=== PATIENT | female | born 1975 | race Caucasian/White ===

== ENCOUNTER 2016-12-08 10:27 | Day surgery (SDC) | payer MEDICAID, OTHER ==
[2016-12-08] VITALS (12 sets, daily range): BP systolic 139–175; BP diastolic 69–85; PULSE 66–81; RESP 16–18; Ht 167.6 cm; Wt 133.5 kg
[~2016-12-08] VITALS: Ht 167.6 cm; Wt 133.5 kg
[~2016-12-08 10:27] MED LIST: FENTAnyl 50 MCG/ML VIAL ONE; MIDAZOLAM 1 MG/ML 2 ML INJ ONE; SUGAMMADEX SODIUM 200 MG/2 ML VIAL IV ONE
[2016-12-08] MEDS ORDERED: AMLO5TAB4 PO (11:04)
[2016-12-08] MEDS ORDERED: LOSA100T7 PO (11:04)
[2016-12-08 12:27] LABS: BASOPHILS % 0.4 % (0.0-2.0); EOSINOPHILS # 0.1 10^3/ul (0.0-0.5); EOSINOPHILS % 1.1 % (0.0-7.0); HEMATOCRIT 34.2 % (37.0-47.0); HEMOGLOBIN 11.4 g/dl (12.0-16.0); LYMPHOCYTES # 3.1 10^3/ul (0.8-2.9); LYMPHOCYTES % 42.9 % (15.0-51.0); MEAN CORPUSCULAR HEMOGLOBIN 24.5 pg (29.0-33.0); MEAN CORPUSCULAR HGB CONC 33.3 g/dl (32.0-37.0); MEAN CORPUSCULAR VOLUME 73.4 fl (82.0-101.0); MEAN PLATELET VOLUME 10.3 fl (7.4-10.4); MONOCYTE # 0.4 10^3/ul (0.3-0.9); MONOCYTES % 5.3 % (0.0-11.0); NEUTROPHIL # 3.6 10^3/ul (1.6-7.5); PLATELET COUNT 387 10^3/UL (140-415); RED BLOOD COUNT 4.66 10^6/ul (4.20-5.40); RED CELL DISTRIBUTION WIDTH 16.4 % (11.5-14.5); WHITE BLOOD COUNT 7.2 10^3/ul (4.8-10.8)
[2016-12-08 12:39] LABS: INR 0.92; PROTIME 12.4 Sec (12.2-14.2)
[2016-12-08 12:40] LABS: PARTIAL THROMBOPLASTIN TIME 27.3 Sec (25.0-35.0)
[2016-12-08 12:55] LABS: CALCIUM 9.3 mg/dl (8.4-10.2); CREATININE 0.6 mg/dl (0.44-1.00); POTASSIUM 4.3 mmol/L (3.5-5.1)
[2016-12-08] MEDS ORDERED: NEOSTIGMINE 3 MG/3 ML SYRINGE ONE (13:57)
[2016-12-08] MEDS ORDERED: PROPOFOL 20 ML ONE (13:57)
[2016-12-08] MEDS ORDERED: ROCURONIUM 50 MG INJ ONE (13:57)
[2016-12-08] MEDS ORDERED: FENTAnyl 50 MCG/ML VIAL ONE (13:57)
[2016-12-08] MEDS ORDERED: MIDAZOLAM 1 MG/ML 2 ML INJ ONE (13:57)
[2016-12-08] MEDS ORDERED: GLYCOPYRROLATE 1 MG INJ ONE (13:57)
[2016-12-08] MEDS ORDERED: LIDOCAINE 2% (SDV) 5 ML INJ ONE (13:57)
[2016-12-08] MEDS ORDERED: CEFAZOLIN 1 GM INJ ONE (13:58)
[2016-12-08] MEDS ORDERED: ATROPINE 1 MG/10 ML SYRINGE IV PRN (14:00)
[2016-12-08] MEDS ORDERED: hydrALAzine 20 MG INJ IV PRN (14:00)
[2016-12-08] MEDS ORDERED: DIPHENHYDRAMINE 50 MG INJ IV PRN (14:00)
[2016-12-08] MEDS ORDERED: EPHEDrine SULFATE 50 MG/5 ML SYG IV PRN (14:00)
[2016-12-08] MEDS ORDERED: OXYCODONE/ACETAMINOPHEN (5/325) TAB PO PRN ×2 (14:00)
[2016-12-08] MEDS ORDERED: MEPERIDINE 25 MG INJ IV PRN (14:00)
[2016-12-08] MEDS ORDERED: LABETALOL HCL 20MG INJ IV PRN (14:00)
[2016-12-08] MEDS ORDERED: FENTAnyl 50 MCG/ML VIAL IV PRN ×2 (14:00)
[2016-12-08] MEDS ORDERED: morphine (1 MG/ML) 10ML SYRINGE IV PRN ×3 (14:00)
[2016-12-08] MEDS ORDERED: HYDROmorphONE (0.2 MG/ML) 10ML SYG IV PRN ×3 (14:00)
[2016-12-08] MEDS ORDERED: MIDAZOLAM 1 MG/ML 2 ML INJ IV PRN (14:00)
[2016-12-08] MEDS ORDERED: ONDANSETRON 4 MG INJ IV PRN (14:00)
[2016-12-08] MEDS ORDERED: SUCCINYLCHOLINE CHLORIDE 100 MG/5 ML SYG IV ONE (14:38)
[2016-12-08] MEDS ORDERED: POLYMYXIN/BACITRACIN 1L IRRIG IRR ONE (15:21)
--- NOTE | 2016-12-08 15:39 | OPR ---
Date/Time of Note Date/Time of Note DATE: 12/08/16 TIME: 15:38 Operative Report Preoperative Diagnosis Incarcerated ventral hernia Postoperative Diagnosis Same Operation/Procedure Performed Exploratory laparotomy repair of incarcerated ventral hernia and resection of a large portion of the omentum Surgeon: PHYLLIS LAZO MD assistant to the ceo: HECTOR BAKER MD Anesthesia: general Estimated Blood Loss: 10 - 50 ml's Complications: None PHYLLIS LAZO MD Dec 08, 2016 15:39
--- NOTE | 2016-12-11 12:12 | OPR ---
DATE OF OPERATION: 12/08/2016 PREOPERATIVE DIAGNOSIS: Large ventral hernia. OPERATION PERFORMED: Exploratory laparotomy, repair of large ventral hernia with resection of a large portion of the greater omentum. ANESTHESIA: General. SURGEON: Dr. Lanza. MOLD INSPECTOR: Dr. Aaron. INDICATIONS FOR PROCEDURE: Patient is a 40-year-old female, who presented with a large long-standing ventral hernia in the upper midline. She was counseled as to the risks versus benefits of repair. She consented and was scheduled for surgery. OPERATIVE PROCEDURE: The patient was brought to the operating theater, placed under general anesthesia. The abdomen was prepped and draped in usual sterile fashion. An upper midline incision was made starting at a point approximately 6 cm above the umbilicus, down and around the left side of the umbilicus to a point 2 cm below the umbilicus. Subcutaneous tissue was dissected with cautery. A very large, at least 10 cm, hernia sac was found in the subcutaneous space. It was meticulously dissected down to its base with the abdominal wall fascia using cautery. The sac was then opened. It was found to contain a very large amount of the omentum. This omentum in the sac was then resected using the LigaSure device. The sac and a large portion of the omentum were then sent for pathologic analysis. Dr. Lanza then inspected the defect. Although it was long, it was not very wide and incision was made that it could be repaired in primary fashion. It was repaired with 0 looped PDS sutures in running fashion. The dermis of the umbilicus was then tacked to the abdominal wall with a 4-0 Vicryl suture and through this large defect, large space left after removal of the hernia sac, decision was made to place a #7 Taz-Durbin drain through the right side of the abdominal wall into the wound. It was secured in place with 2-0 nylon suture in the standard fashion. The skin incision was then reapproximated with skin olive. The patient tolerated procedure well. ESTIMATED BLOOD LOSS: 20 cc. COMPLICATIONS: There were no complications. The patient was transferred in stable condition to the recovery room. Dictated By: Charli Lanza MD /cyrus/gregory /Document#: [id number]
== END 2016-12-08 17:50 | disposition home or self-care (01) ==
LOC: SDS 10:27
PROVIDERS: ATTEND Surgery Surgical Oncology
DX: K43.6 Other and unspecified ventral hernia with obstruction, without gangrene (principal); I10 Essential (primary) hypertension
CPT/HCPCS: 49561; 49568; 80048; 84703; 85025; 85610; 85730; 88304; J0690; J2250; J3010; J7999; Z7512; Z7610; J2710